=== PATIENT | female | born 1970 | race Caucasian/White ===

== ENCOUNTER 2017-07-09 11:22 | Emergency (ER) | payer MEDICARE, MEDICAID ==
[2017-07-09] MEDS ORDERED: CLINDAMYCIN HCL 150 MG CAPSULE PO ONE (12:23)
[2017-07-09] MEDS ORDERED: IBUPROFEN 800 MG TABLET PO ONE (12:23)
--- NOTE | 2017-07-09 12:30 | ER Document Report ---
HPI - HPI Patient complains to provider of: Right forearm tenderness Onset: Other - 2 days Onset/Duration: Persistent Quality of pain: Achy Pain Level: 4 Context: Patient states she has been doing a lot of cleaning lately and is concerned that she might have been bit by a spider. Patient with tenderness and redness along lateral aspect of right forearm and hand. Patient denies any injury Associated Symptoms: Other - Right forearm pain. denies: Fever Exacerbated by: Movement Relieved by: Denies Similar symptoms previously: No Recently seen / treated by doctor: No - ROS ROS below otherwise negative: Yes Systems Reviewed and Negative: Yes All other systems reviewed and negative - CONSTITUTIONAL Constitutional: DENIES: Fever, Chills - NEURO Neurology: DENIES: Weakness - MUSCULOSKELETAL Musculoskeletal: REPORTS: Extremity pain, Swelling - DERM Skin Color: Erythema Skin Problems: None Past Medical History - General Information source: Patient - Social History Smoking Status: Current Every Day Smoker Smoking Education Provided: Yes Frequency of alcohol use: None Drug Abuse: None Occupation: none Lives with: Family Family History: Reviewed & Not Pertinent - Medical History Medical History: Negative Past Surgical History: Reports: Hx Orthopedic Surgery Vertical Provider Document - CONSTITUTIONAL Agree With Documented VS: Yes Exam Limitations: No Limitations General Appearance: WD/WN, No Apparent Distress - INFECTION CONTROL TRAVEL OUTSIDE OF THE [place] IN LAST 30 DAYS: No - HEENT HEENT: Atraumatic, Normocephalic - NECK Neck: Normal Inspection, Supple - RESPIRATORY Respiratory: Breath Sounds Normal, No Respiratory Distress O2 Sat by Pulse Oximetry: 96 - CARDIOVASCULAR Cardiovascular: Regular Rate, Regular Rhythm Pulses: Normal: Radial - BACK Back: Normal Inspection - MUSCULOSKELETAL/EXTREMETIES Musculoskeletal/Extremeties: MAEW, Tender - r distal FA tenderness along ulnar aspect, area mildly erythematous and warm to touch concerning for cellulitis. Mild streaks extending up ulnar aspect of right hand. No concern for septic joint, Edema. negative: Eccymosis - NEURO Level of Consciousness: Awake, Alert, Appropriate Motor/Sensory: No Motor Deficit - DERM Integumentary: Warm, Dry Notes: Erythema along ulnar aspect of distal right forearm and right hand Patient with faint ecchymosis to dorsal aspect of right hand with small scabbed areas concerning for puncture wounds Course - Re-evaluation Re-evalutation: 07/09/17 12:27 Patient with findings concerning for cellulitis at this time. Patient states pain is improved today compared to earlier this morning. Patient encouraged to return immediately for any worsening symptoms. Patient advised to recheck in 2 days if she is not better. 07/09/17 12:28 Controlled substance database reviewed - Vital Signs Vital signs: Temp Pulse Resp BP Pulse Ox 98.5 F 98 18 119/79 96 07/09/17 11:28 07/09/17 11:28 07/09/17 11:28 07/09/17 11:28 07/09/17 11:28 Discharge - Discharge Clinical Impression: Cellulitis Qualifiers: Site of cellulitis: extremity Site of cellulitis of extremity: upper extremity Laterality: right Qualified Code(s): L03.113 - Cellulitis of right upper limb Condition: Stable Disposition: HOME, SELF-CARE Instructions: Anti-Inflammatory Medication ([facility]), Cellulitis ([facility]), Clindamycin ([facility]) Additional Instructions: Return immediately for any new or worsening symptoms Followup with your primary care provider, call tomorrow to make a followup appointment Return in 2 days for a recheck, return immediately for any worsening symptoms Prescriptions: Clindamycin HCl [Cleocin Hcl] 300 mg PO QID #28 capsule Hydrocodone/Acetaminophen [[place] 5-325 Tablet] 1 each PO Q4 PRN #10 tablet PRN Reason: Ibuprofen [Motrin 600 Mg Tablet] 600 mg PO Q6H PRN #20 tablet PRN Reason: for pain Forms: Smoking Cessation Education Referrals: [facility] [Provider Group] - Follow up as needed
[2017-07-09 12:56] VITALS: BP 121/80
== END 2017-07-09 12:56 | disposition home or self-care (01) ==
LOC: ER 11:22
DX: L03.113 Cellulitis of right upper limb (principal); M79.631 Pain in right forearm; M79.641 Pain in right hand; F17.200 Nicotine dependence, unspecified, uncomplicated
CPT/HCPCS: 99283; A9270 ×2